=== PATIENT | female | born 1985 | race African-American/Black ===

== ENCOUNTER 2017-06-14 16:01 | Emergency (ER) | payer MEDICAID, OTHER ==
[~2017-06-14 16:01] MED LIST: HYDR-3535 PO; RANI150 PO; SOMA350T PO
[2017-06-14 16:26] VITALS: BP 138/90; PULSE 93; RESP 16; TEMP 97.2; O2SAT 100
[2017-06-14] MEDS ORDERED: SOMA350T PO (17:03)
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
[2017-06-14 18:06] VITALS: BP 133/87
== END 2017-06-14 18:11 | disposition home or self-care (01) ==
LOC: NEDAMB 16:01 → NEPD 18:11
DX: T42.8X5A Adverse effect of antiparkinsonism drugs and other central muscle-tone depressants, initial encounter (principal); Y92.810 Car as the place of occurrence of the external cause; E78.00 Pure hypercholesterolemia, unspecified; I10 Essential (primary) hypertension; M54.5 Low back pain; Z72.0 Tobacco use
CPT/HCPCS: 99282